=== PATIENT | female | born 1985 | race African-American/Black ===

== ENCOUNTER 2016-10-08 17:47 | Emergency (ER) | payer MEDICAID ==
[~2016-10-08] VITALS: Ht 165.1 cm; Wt 98.0 kg
[2016-10-08 18:03] VITALS: BP 125/80
== END 2016-10-08 23:44 | disposition left against medical advice (07) ==
LOC: ER 20:02
DX: J02.9 Acute pharyngitis, unspecified (principal); Z53.21 Procedure and treatment not carried out due to patient leaving prior to being seen by health care provider